=== PATIENT | male | born 1975 | race Caucasian/White ===

== ENCOUNTER 2017-07-28 11:22 | Emergency (ER) | payer SELFPAY ==
[~2017-07-28] VITALS: Ht 182.9 cm; Wt 84.1 kg
[2017-07-28 11:29] VITALS: BP 130/74; TEMP 98.1
[2017-07-28] MEDS ORDERED: NORCO 325 MG-51 TAB PO (13:20)
[2017-07-28] MEDS ORDERED: FLEXERIL 1010 MG/TAB PO (13:24)
[2017-07-28 13:43] VITALS: PULSE 61
== END 2017-07-28 13:44 | disposition home or self-care (01) ==
LOC: COL.ER 11:22
DX: M54.5 Low back pain (principal); R25.2 Cramp and spasm; M62.830 Muscle spasm of back; X58.XXXA Exposure to other specified factors, initial encounter
CPT/HCPCS: J1170